=== PATIENT | female | born 1985 | race Asian ===

== ENCOUNTER 2020-05-15 07:40 | Inpatient (IN) | payer MEDICAID ==
[~2020-05-15] VITALS: Ht 154.9 cm; Wt 72.1 kg
[2020-05-15] MEDS ORDERED: LR 1,000 ML IV ONE (08:20)
[2020-05-15] MEDS ORDERED: LR 1,000 ML IV SCH (08:20)
[2020-05-15] MEDS ORDERED: OXYTOCIN/0.9 % SODIUM CHLORIDE 1,000 ML IV SCH ×2 (08:20→12:50)
[2020-05-15] MEDS ORDERED: TERBUTALINE SULFATE 1 MG/ML VIAL SUBCUT ONE (08:30)
[2020-05-15 08:59] LABS: BASOPHILS % (AUTO) 0.2 % (0.0-2.0); HEMATOCRIT 36.1 % (36-48); HEMOGLOBIN 12.1 g/dL (12.0-16.0); LYMPHOCYTES % (AUTO) 7.9 % (20.5-51.5); MEAN CORPUSCULAR HEMOGLOBIN 31 pg (27-31); MEAN CORPUSCULAR HGB CONC 34 % (32-36); MEAN CORPUSCULAR VOLUME 93 fL (79.0-98.0); MONOCYTES # (AUTO) 0.6 K/uL (0.0-1.0); MONOCYTES % (AUTO) 4.7 % (1.7-9.3); NEUTROPHILS # (AUTO) 10.9 K/uL (1.8-7.7); NEUTROPHILS % (AUTO) 87.2 % (40.0-70.0); PLATELET COUNT (AUTO) 244 K/uL (130-430); RED BLOOD CELL COUNT(AUTO) 3.87 MIL/uL (4.2-6.2); RED CELL DISTRIBUTION WIDTH 12.6 % (9.0-15.0); WHITE BLOOD COUNT (AUTO) 12.6 K/uL (4.8-10.8)
[2020-05-15] MEDS ORDERED: ROPIVACAINE HCL/PF 0.2% 0 ML ONE (09:06)
[2020-05-15] MEDS ORDERED: fentaNYL CITRATE/PF 100 MCG/2 ML AMP ONE (09:06)
[2020-05-15] MEDS ORDERED: OXYTOCIN/0.9 % SODIUM CHLORIDE 1,000 ML IV ONE (12:50)
[2020-05-15] MEDS ORDERED: DIPH-TET-PERTUS Vaccine 0.5 ML VIAL (ADACEL) I.M. PRN (13:00)
[2020-05-15] MEDS ORDERED: HYDROcodone/ACETAMIN 5-325 MG TAB (NORCO/ VICODIN) PO PRN (13:00)
[2020-05-15] MEDS ORDERED: DERMOPLAST SPRAY TP PRN (13:00)
[2020-05-15] MEDS ORDERED: SENNOSIDES/DOCUSATE SODIUM 1 TAB TABLET(SENOKOT-S) PO PRN (13:00)
[2020-05-15] MEDS ORDERED: ANUSOL 1 EA SUPP.RECT (PREPARATION H) RC PRN (13:00)
[2020-05-15] MEDS ORDERED: LANOLIN 7 GM OINT. TP PRN (13:00)
[2020-05-15] MEDS ORDERED: RHO(D) IMMUNE GLOBULIN/MALTOSE 1500 UNITS/1.3 ML (WINHRO) IM PRN (13:00)
[2020-05-15] MEDS ORDERED: DOCUSATE SODIUM 100 MG CAPSULE PO PRN (13:00)
[2020-05-15] MEDS ORDERED: MEASLES,MUMPS&RUBELLA VACC/PF 12500 UNIT/0.5 ML VIAL SUBQ PRN (13:00)
[2020-05-15] MEDS ORDERED: OXYCODONE/ACETAMINOPHEN 5-325 TABLET PO PRN ×2 (13:00)
[2020-05-15] MEDS ORDERED: HYDROCORTISONE 0.5%, 28.35 GM TOPICAL CREAM TP PRN (13:00)
[2020-05-15] MEDS ORDERED: WITCH HAZEL LEAF 1 MED.PAD MED.PAD TP PRN (13:00)
[2020-05-15] MEDS ORDERED: LR 500 ML IV ONE (15:18)
[2020-05-15] MEDS ORDERED: ePHEDrine sulfate 50 MG/ML VIAL IVP PRN (15:30)
[2020-05-15] MEDS: IBUPROFEN 600 MG TABLET PO SCH ×2 (18:01→23:56)
[2020-05-15] MEDS ORDERED: TEMAZEPAM 15 MG CAPSULE PO PRN (21:00)
[2020-05-16] MEDS: IBUPROFEN 600 MG TABLET PO SCH ×2 (06:14→12:13)
[2020-05-16 07:37] LABS: HEMATOCRIT 35.2 % (36-48); HEMOGLOBIN 11.8 g/dL (12.0-16.0)
[2020-05-17 18:24] LABS: FTA-Ab (T PALLIDUM) Non Reactive (Non Reactive)
== END 2020-05-16 15:00 | disposition home or self-care (01) | DRG 560 ==
LOC: SPU 07:40 → OBSVTOIN 09:50 → SPU 12:18
PROVIDERS: ADMIT Obstetrics & Gynecology; ATTEND Obstetrics & Gynecology
PROC: 10E0XZZ Delivery of Products of Conception, External Approach (ICD-10-PCS; principal; 2020-05-15)
PROC: 3E0R3BZ Introduction of Anesthetic Agent into Spinal Canal, Percutaneous Approach (ICD-10-PCS; 2020-05-15)
PROC: 00HU33Z Insertion of Infusion Device into Spinal Canal, Percutaneous Approach (ICD-10-PCS; 2020-05-15)
PROC: 0KQM0ZZ Repair Perineum Muscle, Open Approach (ICD-10-PCS; 2020-05-15)
DX: O70.1 Second degree perineal laceration during delivery (principal); Z37.0 Single live birth; Z3A.39 39 weeks gestation of pregnancy
CPT/HCPCS: 36415; 81002-TC; 82947-TC; 82962; 85018-TC; 85025; 86592; 86780; 86886; 86900; 86901; G0378; J2590; J3010; J7120

== ENCOUNTER 2020-05-21 16:55 | Emergency (ER) | payer MEDICAID, SELFPAY ==
[~2020-05-21] VITALS: Ht 160 cm; Wt 72.6 kg
[2020-05-21 17:12] VITALS: BP_SYST 116
[2020-05-21 18:03] LABS: CREATININE 0.6 mg/dL (0.55-1.30); POTASSIUM 3.9 mmol/L (3.5-5.1)
[2020-05-21 18:07] LABS: ALBUMIN 2.8 g/dL (3.4-4.8); TOTAL BILIRUBIN 0.8 mg/dL (0.0-1.0)
[2020-05-21 18:15] LABS: HEMATOCRIT 40.7 % (36-48); HEMOGLOBIN 13.3 g/dL (12.0-16.0); MEAN CORPUSCULAR VOLUME 95 fL (79.0-98.0); WHITE BLOOD COUNT (AUTO) 11.2 K/uL (4.8-10.8)
[2020-05-21 18:16] LABS: MEAN CORPUSCULAR HEMOGLOBIN 31 pg (27-31); MEAN CORPUSCULAR HGB CONC 33 % (32-36); NEUTROPHILS % (AUTO) 78.9 % (40.0-70.0); PLATELET COUNT (AUTO) 362 K/uL (130-430)
[2020-05-21 18:17] LABS: BASOPHILS % (AUTO) 0.4 % (0.0-2.0); EOSINOPHILS % (AUTO) 0.1 % (0.0-4.0); LYMPHOCYTES % (AUTO) 9.1 % (20.5-51.5); MONOCYTES # (AUTO) 1.3 K/uL (0.0-1.0); MONOCYTES % (AUTO) 11.5 % (1.7-9.3); NEUTROPHILS # (AUTO) 8.8 K/uL (1.8-7.7)
[2020-05-21 19:09] LABS: BILIRUBIN,URINE NEGATIVE (NEGATIVE); BLOOD, URINE 3+ (NEGATIVE); COLOR,URINE YELLOW (YELLOW); GLUCOSE,URINE NEGATIVE (NEGATIVE); KETONES,URINE NEGATIVE (NEGATIVE); LEUKOCYTE ESTERASE ,URINE 3+ (NEGATIVE); NITRITE, URINE POSITIVE (NEGATIVE); PROTEIN URINE NEGATIVE (NEGATIVE); UROBILINOGEN,URINE 0.2 (0.2-1.0)
[2020-05-21 19:47] LABS: CLARITY/URINE HAZY (CLEAR)
[2020-05-21 19:59] LABS: WBC,URINE >100 /HPF (0-3)
[2020-05-21 20:00] LABS: BACTERIA,URINE MANY /HPF (None Seen); MUCUS,URINE 2+ /LPF (None Seen)
[2020-05-21] MEDS ORDERED: ACETAMINOPHEN 500 MG TABLET PO ONE (22:00)
[2020-05-21] MEDS ORDERED: NACL 0.9% 1,000 ML IV ONE (22:00)
[2020-05-21] MEDS ORDERED: ACETAMINOPHEN 325 MG TABLET ONE (22:28)
[2020-05-21] MEDS ORDERED: ACETAMINOPHEN 325 MG TABLET PO ONE (22:30)
[2020-05-21] MEDS ORDERED: cefTRIAXone 1 GM in D5W 50 ML IV ONE (22:30)
[2020-05-21] MEDS ORDERED: cefTRIAXone 1 GM VIAL ONE (22:53)
[2020-05-21] MEDS ORDERED: METHYLERGONOVINE MALEATE 0.2 MG TABLET PO ONE (23:15)
[2020-05-21] MEDS ORDERED: METHYLERGONOVINE MALEATE 0.2 MG TABLET ONE (23:56)
[2020-05-22 00:41] VITALS: BP_SYST 132
== END 2020-05-22 00:41 | disposition home or self-care (01) ==
LOC: SED 16:55
DX: O72.2 Delayed and secondary postpartum hemorrhage (principal); O86.20 Urinary tract infection following delivery, unspecified; Z20.828 Contact with and (suspected) exposure to other viral communicable diseases
CPT/HCPCS: 36415; 71045; 76856; 80053; 81000; 83605; 85025; 87040; 87086; 96365; 99285; C9803; J0696; J7030; U0003; 87186-TC